=== PATIENT | female | born 1975 | race Caucasian/White ===

== ENCOUNTER 2016-06-10 10:01 | Emergency (ER) | payer MEDICARE, OTHER ==
[~2016-06-10] VITALS: Ht 165.1 cm; Wt 81.0 kg
[~2016-06-10 10:01] MED LIST: AMOXICILLIN250 M1 OR; ASPIRIN OR; BACTRIM DS1 TAB OR; BL IBUPROFEN200 MG PO; CIPRO500 MG OR; CIPROFLOXACN250 MG PO; CREON12000 UNT OR; CREON12000 UNT PO; DARVOCET N-100100 - OR; DICYCLOMINE10 MG PO; ECOTRIN325 MG OR; FLEXERIL OR; FLUARIX QUADRIV1 IN1 IM; FLUARIX QUADRIV1 IN2 IM; GLUCOPHAGE500 MG PO; HUMULIN 70/30 SC; HUMULIN R1 M1 SC; HYDROCO/APAP1 TA9 PO; IBUPROFEN200 MG PO; LANTUS; LANTUS SC; LANTUS SOLOSTAR SC; LANTUS100 MG/ML SC; LORTAB 10-325 M1 TAB PO; LORTAB 7.5 OR; METFORMIN500 MG PO; MOTRIN800 MG/TAB PO; NOVOLIN 70/30 SC; NOVOLOG FLEXPEN SC; OMEPRAZOLE20 MG PO; OXYBUTYNIN10 MG OR; OXYBUTYNIN5 M1 PO; OXYBUTYNIN5 MG PO; PANCREASE MT OR; PERCOCET1 TA1 OR; PHENYTOIN EX100 MG PO; PLAVIX75 MG OR; PLAVIX75 MG PO; PRILOSEC10 MG OR; PRILOSEC20 MG; PRILOSEC20 MG PO; PROMETHAZINE25 MG OR; REGLAN10 MG OR; REGLAN10 MG PO; RELION 70/30 SC; RID COMPLETE; RYBIX ODT50 MG PO; SINGULAIR10 MG OR; SYSTANE BALANCE REST OU; TRAMADOL HCL50 MG PO; ULTRAM50 M1 PO; ZESTRIL/PRI20 MG/TAB PO; ZYPREXA2.5 MG PO; [UNRECOGNIZED DRUG - CODE] PO; [UNRECOGNIZED DRUG - OTHER] OR; [UNRECOGNIZED DRUG - OTHER] OR
[2016-06-10] MEDS ORDERED: MOTRIN800 MG PO (10:21)
[2016-06-10 11:19] VITALS: BP 134/86
== END 2016-06-10 11:25 | disposition home or self-care (01) ==
LOC: ED 10:01
DX: S43.402A Unspecified sprain of left shoulder joint, initial encounter (principal); W01.0XXA Fall on same level from slipping, tripping and stumbling without subsequent striking against object, initial encounter; Y92.009 Unspecified place in unspecified non-institutional (private) residence as the place of occurrence of the external cause

== ENCOUNTER 2016-08-08 10:15 | Inpatient (IN) | payer MEDICARE, OTHER ==
[~2016-08-08] VITALS: Ht 165.1 cm; Wt 75.0 kg
[2016-08-08] VITALS (14 sets, daily range): BP systolic 90–120; BP diastolic 46–77
[~2016-08-08 10:15] MED LIST changes: +MOTRIN800 MG PO
[2016-08-08 10:57] LABS: HEMATOCRIT 35.3 % (37.0-47.0); HEMOGLOBIN 10.7 g/dl (12.0-16.0); IMMATURE GRANULOCYTES 1.2 % (0.0-1.0); MEAN CORPUSCULAR HGB 26.7 pG CALC (26.0-32.0); MEAN CORPUSCULAR HGB CONC 30.3 g/L CALC (32.0-36.0); NEUT# 6.1 thou/uL (2.00-7.15); RED BLOOD COUNT 4.01 mill/uL (4.20-5.60); RED CELL DISTRI WIDTH 16.9 % (11.5-15.5)
[2016-08-08 11:00] LABS: ALBUMIN 4.5 g/dL (3.2-5.0); BILIRUBIN, TOTAL 0.4 mg/dL (0.0-1.4); CALCIUM 10.6 mg/dL (8.4-10.2); CREATININE 1.3 mg/dL (0.5-1.0); TOTAL PROTEIN 8.2 g/dL (6.3-8.2)
[2016-08-08] MEDS ORDERED: LANTUS100 UNIT/M SC (11:05)
[2016-08-08] MEDS ORDERED: METFORMIN500 MG PO (11:11)
[2016-08-08] MEDS ORDERED: SEROQUEL25 MG PO (11:12)
[2016-08-08 11:33] LABS: URINE BILIRUBIN - DIPSTICK NEGATIVE (NEGATIVE); URINE BLOOD DIPSTICK NEGATIVE (NEGATIVE); URINE CLARITY CLEAR; URINE COLOR YELLOW; URINE GLUCOSE - DIPSTICK >=1000 mg/dL (NEGATIVE); URINE KETONE TRACE mg/dL (NEGATIVE); URINE LEUK ESTERASE NEGATIVE (NEGATIVE); URINE NITRITE - DIPSTICK NEGATIVE (Negative); URINE PH 5.5 (4.5-8.0); URINE PROTEIN - DIPSTICK NEGATIVE (NEG-TRACE); URINE SPECIFIC GRAVITY <=1.005; URINE UROBILINOGEN - DIPSTICK 0.2 E.U./dL (0.2)
[2016-08-08 17:15] LABS: BUN 58 mg/dL (7-17); BUN/CREATININE RATIO 53 (12-20 (CALC)); CALCIUM 10.3 mg/dL (8.4-10.2); CARBON DIOXIDE 21 mmol/l (22-30); CREATININE 1.1 mg/dL (0.5-1.0); GFR 55 ML/MIN (>=60 (CALC)); GFR FOR AFR.AMER. > 60 ML/MIN (>=60 (CALC)); GLUCOSE 177 mg/dL (65-105)
[2016-08-08 17:19] LABS: ANION GAP 18 (6-22 (CALC)); CHLORIDE 127 mmol/l (95-108); SODIUM 162 mmol/l (137-146)
[2016-08-08 20:49] LABS: BUN 56 mg/dL (7-17); BUN/CREATININE RATIO 50 (12-20 (CALC)); CALCIUM 10.3 mg/dL (8.4-10.2); CARBON DIOXIDE 22 mmol/l (22-30); CHLORIDE 125 mmol/l (95-108); CREATININE 1.1 mg/dL (0.5-1.0); GFR 55 ML/MIN (>=60 (CALC)); GFR FOR AFR.AMER. > 60 ML/MIN (>=60 (CALC)); GLUCOSE 94 mg/dL (65-105); POTASSIUM 3.6 mmol/l (3.5-5.1)
[2016-08-08 20:50] LABS: ANION GAP 18 (6-22 (CALC)); SODIUM 161 mmol/l (137-146)
[2016-08-09] VITALS (12 sets, daily range): BP systolic 92–130; BP diastolic 54–79
[2016-08-09 05:55] LABS: HEMATOCRIT 33.7 % (37.0-47.0); HEMOGLOBIN 10.1 g/dl (12.0-16.0); IMMATURE GRANULOCYTES 0.4 % (0.0-1.0); MEAN CELL VOLUME 88.2 fL CALC (80.0-100.0); MEAN CORPUSCULAR HGB 26.4 pG CALC (26.0-32.0); NEUT# 5.46 thou/uL (2.00-7.15); RED BLOOD COUNT 3.82 mill/uL (4.20-5.60); RED CELL DISTRI WIDTH 17.2 % (11.5-15.5)
[2016-08-09 06:20] LABS: ALBUMIN 3.9 g/dL (3.2-5.0); BILIRUBIN, TOTAL 0.3 mg/dL (0.0-1.4); CALCIUM 9.5 mg/dL (8.4-10.2); CREATININE 1.3 mg/dL (0.5-1.0); POTASSIUM 4.2 mmol/l (3.5-5.1); TOTAL PROTEIN 7.1 g/dL (6.3-8.2)
[2016-08-09 16:43] LABS: ANION GAP 14 (6-22 (CALC)); BUN 39 mg/dL (7-17); BUN/CREATININE RATIO 40 (12-20 (CALC)); CALCIUM 8.5 mg/dL (8.4-10.2); CARBON DIOXIDE 21 mmol/l (22-30); CHLORIDE 113 mmol/l (95-108); GFR > 60 ML/MIN (>=60 (CALC)); GFR FOR AFR.AMER. > 60 ML/MIN (>=60 (CALC)); GLUCOSE 355 mg/dL (65-105); SODIUM 144 mmol/l (137-146)
[2016-08-10] VITALS (8 sets, daily range): BP systolic 92–134; BP diastolic 56–94
[2016-08-10 04:55] LABS: HEMOGLOBIN 8.4 g/dl (12.0-16.0); IMMATURE GRANULOCYTES 0.5 % (0.0-1.0); MEAN CELL VOLUME 87.5 fL CALC (80.0-100.0); MEAN CORPUSCULAR HGB 26.3 pG CALC (26.0-32.0); NEUT# 2.86 thou/uL (2.00-7.15); RED BLOOD COUNT 3.2 mill/uL (4.20-5.60); RED CELL DISTRI WIDTH 16.8 % (11.5-15.5)
[2016-08-10 05:13] LABS: ALBUMIN 3.1 g/dL (3.2-5.0); ALKALINE PHOSPHATASE 106 u/l (38-126); ANION GAP 15 (6-22 (CALC)); BILIRUBIN, TOTAL 0.2 mg/dL (0.0-1.4); BUN 35 mg/dL (7-17); BUN/CREATININE RATIO 35 (12-20 (CALC)); CALCIUM 8.3 mg/dL (8.4-10.2); CARBON DIOXIDE 22 mmol/l (22-30); CHLORIDE 113 mmol/l (95-108); GFR > 60 ML/MIN (>=60 (CALC)); GFR FOR AFR.AMER. > 60 ML/MIN (>=60 (CALC)); GLUCOSE 427 mg/dL (65-105); POTASSIUM 4.6 mmol/l (3.5-5.1); SGOT/AST 17 u/l (14-36); SGPT/ALT 23 u/l (9-52); SODIUM 145 mmol/l (137-146); TOTAL PROTEIN 5.9 g/dL (6.3-8.2)
== END 2016-08-10 13:30 | DRG 638 ==
LOC: ENPENDDIS → ED 10:15 → ED-I 12:35 → ED 12:45 → ICU 12:46
PROVIDERS: Emergency Medicine; ADMIT Internal Medicine Geriatric Medicine; ATTEND Internal Medicine Geriatric Medicine
PROC: 0T9B70Z Drainage of Bladder with Drainage Device, Via Natural or Artificial Opening (ICD-10-PCS; principal; 2016-08-08)
DX: E13.10 Other specified diabetes mellitus with ketoacidosis without coma (principal); E87.0 Hyperosmolality and hypernatremia; S06.300S Unspecified focal traumatic brain injury without loss of consciousness, sequela; I10 Essential (primary) hypertension; E03.9 Hypothyroidism, unspecified; M19.90 Unspecified osteoarthritis, unspecified site; F06.8 Other specified mental disorders due to known physiological condition; V89.2XXS Person injured in unspecified motor-vehicle accident, traffic, sequela; Z86.718 Personal history of other venous thrombosis and embolism
CPT/HCPCS: J2060

== ENCOUNTER 2016-08-23 18:58 | Inpatient (IN) | payer MEDICARE, OTHER ==
[~2016-08-23] VITALS: Ht 165.1 cm; Wt 66.0 kg
[~2016-08-23 18:58] MED LIST changes: +LANTUS100 UNIT/M SC; +SEROQUEL25 MG PO
--- NOTE | 2016-08-23 18:58 | NUR ---
ARRIVED VIA EMS INJURY TO MOUTH DRIES BLOOD NOTED
--- NOTE | 2016-08-23 19:00 | NUR ---
L SCLERA RED. PT UNABLE TO SPEAK DUE TO PREVIOUS HX. MOVES ALL EXTREMITES AND FOLLOWS COMMANDS.
--- NOTE | 2016-08-23 19:45 | NUR ---
FATHER AT BEDSIDE, INFORMED OF PLAN OF CARE.
--- NOTE | 2016-08-23 19:58 | NUR ---
ASSISTED ON TO BEDPAN WITH FLAKO COHEN
--- NOTE | 2016-08-23 20:00 | NUR ---
ABRASIONS NOTED TO KNEE BILAT. CLEANED WITH NS.
--- NOTE | 2016-08-23 20:03 | NUR ---
PT TO CT.
[2016-08-23 20:04] LABS: HEMATOCRIT 28.5 % (37.0-47.0); IMMATURE GRANULOCYTES 0.3 % (0.0-1.0); MEAN CELL VOLUME 85.3 fL CALC (80.0-100.0); MEAN CORPUSCULAR HGB 26.9 pG CALC (26.0-32.0); MEAN CORPUSCULAR HGB CONC 31.6 g/L CALC (32.0-36.0); NEUT# 5.02 thou/uL (2.00-7.15); RED BLOOD COUNT 3.34 mill/uL (4.20-5.60); RED CELL DISTRI WIDTH 17.5 % (11.5-15.5)
[2016-08-23 20:12] LABS: URINE BILIRUBIN - DIPSTICK NEGATIVE (NEGATIVE); URINE BLOOD DIPSTICK NEGATIVE (NEGATIVE); URINE CLARITY CLEAR; URINE COLOR YELLOW; URINE GLUCOSE - DIPSTICK >=1000 mg/dL (NEGATIVE); URINE KETONE NEGATIVE (NEGATIVE); URINE LEUK ESTERASE NEGATIVE (NEGATIVE); URINE NITRITE - DIPSTICK NEGATIVE (Negative); URINE PROTEIN - DIPSTICK NEGATIVE (NEG-TRACE); URINE UROBILINOGEN - DIPSTICK 0.2 E.U./dL (0.2)
[2016-08-23 20:15] LABS: COCAINE NEGATIVE (NEGATIVE); METHADONE NEGATIVE (NEGATIVE); TETRAHYDROCANNABIONOL NEGATIVE (NEGATIVE)
[2016-08-23 20:16] LABS: BARBITURATES NEGATIVE (NEGATIVE); OXCYCODONE NEGATIVE (NEGATIVE); TRICYLIC ANTIDEPRESSANTS NEGATIVE (NEGATIVE)
[2016-08-23 20:20] LABS: ALBUMIN 3.9 g/dL (3.2-5.0); ALKALINE PHOSPHATASE 139 u/l (38-126); ANION GAP 16 (6-22 (CALC)); BILIRUBIN, TOTAL 0.3 mg/dL (0.0-1.4); BUN 18 mg/dL (7-17); BUN/CREATININE RATIO 25 (12-20 (CALC)); CALCIUM 8.7 mg/dL (8.4-10.2); CARBON DIOXIDE 20 mmol/l (22-30); CHLORIDE 100 mmol/l (95-108); CREATININE 0.7 mg/dL (0.5-1.0); ETHYL ALCOHOL 0 mg/dl (0-30); GFR > 60 ML/MIN (>=60 (CALC)); GFR FOR AFR.AMER. > 60 ML/MIN (>=60 (CALC)); POTASSIUM 4.7 mmol/l (3.5-5.1); SGOT/AST 19 u/l (14-36); SGPT/ALT 29 u/l (9-52); SODIUM 132 mmol/l (137-146)
[2016-08-23 20:22] LABS: GLUCOSE 570 mg/dL (65-105)
--- NOTE | 2016-08-23 20:23 | NUR ---
MARCE FROM LAB REPORTED BS 570, DR MATHEWS INFORMED.
[2016-08-23 20:34] LABS: MYOGLOBIN 35 ng/mL (0 - 62)
--- NOTE | 2016-08-23 20:35 | NUR ---
PT RETURNED FROM CT.
--- NOTE | 2016-08-23 21:40 | NUR ---
DR MATHEWS AT BEDSIDE FOR SUTURING.
--- NOTE | 2016-08-23 21:55 | NUR ---
PT TOLERATED SUTURING OF UPPER LIP WITHOUT DISTRESS.
--- NOTE | 2016-08-23 23:41 | NUR ---
REPORT TO [facility]
[2016-08-24 00:20] VITALS: BP 155/84
--- NOTE | 2016-08-24 00:20 | NUR ---
PT TO 274 VIA BRI ON TELE WITH RN.
--- NOTE | 2016-08-24 00:20 | NUR ---
PT.ARRIVED TO FLOOR ACCOMPANIED BY NOEL CASAREZ OF ED; PT.APPEARS TO BE STABLE AT THIS TIME, PT.ARRIVED ASSESSED, PT.HAS TWO SCRAPES ON KNEES/PICTURES IN CHART, PT.HAS SUTURES TO LEFT SIDE OF LIP, APPARENT BLEEDING AROUND TEETH AND IN MOUTH AND NASAL CAVITIES W/BRUISING TO NOSE AREA STARTING TO APPEAR; PROVIDED CHECO-CARE, ORAL CARE AND CLEANED NASAL PASSAGES OF DRIED BLOOD; SEIZURE PRECAUTIONS PUT IN PLACE, PT.ORIENTED TO ROOM,CALL LIGHT SYSTEM, PROVIDED SUGAR FREE PUDDING AND WATER; BED ALARM ON AND CALL LIGHT PLACED W/IN REACH OF PT.AND PT.INSTRUCTED SEVERAL TIMES HOW TO CALL FOR ASSISTANCE. WILL CONTINUE TO MONITOR CLOSELY
[2016-08-24 04:05] VITALS: BP 107/79
--- NOTE | 2016-08-24 04:20 | NUR ---
PT.SLEEPING SOUNDLY, NO S/S OF DISTRESS AT THIS TIME, BED ALARM ON
--- NOTE | 2016-08-24 05:30 | NUR ---
PT.SLEEPING AT THIS TIME, NO S/S OF DISTRESS, CALL LIGHT W/IN REACH AND BED ALARM ON
--- NOTE | 2016-08-24 07:00 | NUR ---
SHIFT CHANGE REPORT, PT AWAKE AND ALERT, UNABLE TO ASSESS LEVEL ORIENTATION, SPEECH UNCLEAR BUT FOLLOWS COMMANDS APPROPRIATELY, IVF INFUSING, CALL STILES IN REACH.
[2016-08-24 10:27] LABS: HEMATOCRIT 25.8 % (37.0-47.0); IMMATURE GRANULOCYTES 0.4 % (0.0-1.0); MEAN CELL VOLUME 85.4 fL CALC (80.0-100.0); MEAN CORPUSCULAR HGB 26.5 pG CALC (26.0-32.0); NEUT# 4.63 thou/uL (2.00-7.15); RED BLOOD COUNT 3.02 mill/uL (4.20-5.60); RED CELL DISTRI WIDTH 17.2 % (11.5-15.5)
[2016-08-24 10:47] LABS: ALKALINE PHOSPHATASE 109 u/l (38-126); ANION GAP 14 (6-22 (CALC)); BILIRUBIN, TOTAL 0.2 mg/dL (0.0-1.4); BUN 14 mg/dL (7-17); BUN/CREATININE RATIO 22 (12-20 (CALC)); CALCIUM 8.2 mg/dL (8.4-10.2); CARBON DIOXIDE 22 mmol/l (22-30); CHLORIDE 104 mmol/l (95-108); CREATININE 0.6 mg/dL (0.5-1.0); GFR > 60 ML/MIN (>=60 (CALC)); GFR FOR AFR.AMER. > 60 ML/MIN (>=60 (CALC)); GLUCOSE 351 mg/dL (65-105); POTASSIUM 4.3 mmol/l (3.5-5.1); SGOT/AST 9 u/l (14-36); SGPT/ALT 25 u/l (9-52); SODIUM 136 mmol/l (137-146); TOTAL PROTEIN 5.7 g/dL (6.3-8.2)
[2016-08-24 11:12] VITALS: BP 125/85
--- NOTE | 2016-08-24 14:35 | NUR ---
PT TRANSPORTED OFF UNIT VIA W/C FOR PROCEDURE AND JUST RETURNED, SETTLED IN BED, CALL STILES IN REACH.
[2016-08-24 15:10] VITALS: BP 136/92
[2016-08-24 19:20] VITALS: BP 138/84
--- NOTE | 2016-08-24 19:54 | NUR ---
REPORT RECEIVED FROM MARIANO PT.IN BED SLEEPING AT THIS TIME, NO S/S OF DISTRESS AT THIS TIME, WILL CONTINUE TO MONITOR, BED ALARM ON
--- NOTE | 2016-08-24 21:00 | NUR ---
PT.ASSESSED AND UP TO BSC, AMBULATED WELL W/1X ASSIST SLOWLY GUIDING HER DUE TO LIMITED VISION, 100CC OF CLEAR YELLOW URINE EMPTIED, PT.BED CHANGED DUE TO INCONTINENCE OF URINE AND PT.REPOSITIONED IN BED W/BED ALARM ON; NS RUNNING @60; PT.C/O EYE HURTING, PROVIDED WARM COMPRESS FOR LEFT EYE AREA FOR COMFORT.
[2016-08-24 23:00] VITALS: BP 128/64
--- NOTE | 2016-08-25 01:00 | NUR ---
PT.SLEEPING AT THIS TIME, ASSISTED PT.REPOSITION IN BED AND PROVIDED PO WATER
--- NOTE | 2016-08-25 03:25 | NUR ---
PT.SLEEPING W/LIGHTS OUT AT THIS TIME, NO S/S OF DISTRESS AT THIS TIME
[2016-08-25 03:43] VITALS: BP 127/76
--- NOTE | 2016-08-25 07:00 | NUR ---
SHIFT CHANGE REPORT, PT AWAKE AND ALERT RESTING IN BED, RESPONDS APPROPRIATELY TO VERBAL STIMULI, C/O PAIN TO L.EYE AND KNEES, IVF INFUSING, CALL STILES IN REACH.
[2016-08-25 07:59] VITALS: BP 129/100
[2016-08-25 08:00] VITALS: BP 132/70
[2016-08-25 08:54] LABS: HEMATOCRIT 31.4 % (37.0-47.0); HEMOGLOBIN 9.6 g/dl (12.0-16.0); IMMATURE GRANULOCYTES 0.2 % (0.0-1.0); MEAN CELL VOLUME 85.8 fL CALC (80.0-100.0); MEAN CORPUSCULAR HGB 26.2 pG CALC (26.0-32.0); MEAN CORPUSCULAR HGB CONC 30.6 g/L CALC (32.0-36.0); NEUT# 5.95 thou/uL (2.00-7.15); RED BLOOD COUNT 3.66 mill/uL (4.20-5.60); RED CELL DISTRI WIDTH 17.2 % (11.5-15.5)
[2016-08-25 09:23] LABS: ALBUMIN 3.7 g/dL (3.2-5.0); ALKALINE PHOSPHATASE 147 u/l (38-126); ANION GAP 20 (6-22 (CALC)); BILIRUBIN, TOTAL 0.4 mg/dL (0.0-1.4); BUN 12 mg/dL (7-17); BUN/CREATININE RATIO 18 (12-20 (CALC)); CALCIUM 8.8 mg/dL (8.4-10.2); CARBON DIOXIDE 16 mmol/l (22-30); CHLORIDE 103 mmol/l (95-108); CREATININE 0.6 mg/dL (0.5-1.0); GFR > 60 ML/MIN (>=60 (CALC)); GFR FOR AFR.AMER. > 60 ML/MIN (>=60 (CALC)); GLUCOSE 407 mg/dL (65-105); POTASSIUM 4.8 mmol/l (3.5-5.1); SGOT/AST 11 u/l (14-36); SGPT/ALT 27 u/l (9-52); SODIUM 134 mmol/l (137-146); TOTAL PROTEIN 6.6 g/dL (6.3-8.2)
--- NOTE | 2016-08-25 10:10 | NUR ---
DR MIRANDA HERE ROUNDING WITH PT, WROTE NEW ORDERS, WILL CONTINUE TO MONITOR.
[2016-08-25 11:33] VITALS: BP 146/98
--- NOTE | 2016-08-25 12:46 | NUR ---
SAT UP IN RECLINER WITH ASSIST OF 1 STAFF, BACK TO BED NOW AND BEING ASSISTED WITH MEAL, PAIN CONCERNS ADDRESSED, CALL STILES IN REACH.
[2016-08-25 15:20] VITALS: BP 127/94
--- NOTE | 2016-08-25 16:20 | NUR ---
VOMITTING AT THIS TIME, DR MIRANDA NOTIFIED AND GAVE ORDERS
--- NOTE | 2016-08-25 18:06 | NUR ---
ZOFRAN GIVEN, VOMITTING SUBSIDED AT THIS TIME.
--- NOTE | 2016-08-25 18:45 | NUR ---
RECEIVED SHIFT REPORT FROM NOEL TORRE. PATIENT LAYING IN BED AND APPEARS NOT TO BE IN ANY APPARENT DISTRESS.
--- NOTE | 2016-08-25 19:20 | NUR ---
PT STATES SHE NEEDS TO VOID. ASSISTED TO BSC.
--- NOTE | 2016-08-25 23:24 | NUR ---
NOTIFY DR MIRANDA OF PT'S HGB LEVEL OF 9.6. ORDERS TO NOTIFY LAB TO HOLD BLOOD UNTIL AM AFTER THE AM LAB RESULT. MIGUEL ÁNGEL IN THE LAB NOTIFIED.
[2016-08-26] VITALS (12 sets, daily range): BP systolic 119–151; BP diastolic 71–94
--- NOTE | 2016-08-26 | NUR ---
PATIENT RESTING QUIETLY IN BED WITH EYES CLOSED AND APPEARS TO BE ASLEEP. NO APPARENT ACUTE DISTRESS NOTED. WILL CONTINUE TO MONITOR
--- NOTE | 2016-08-26 04:00 | NUR ---
PATIENT REMAINDS IN STABLE CONDITION. NO APPARENT ACUTE DISTRESS NOTED.
[2016-08-26 04:26] LABS: HEMATOCRIT 24.6 % (37.0-47.0); HEMOGLOBIN 7.7 g/dl (12.0-16.0); IMMATURE GRANULOCYTES 0.5 % (0.0-1.0); MEAN CELL VOLUME 85.4 fL CALC (80.0-100.0); MEAN CORPUSCULAR HGB 26.7 pG CALC (26.0-32.0); MEAN CORPUSCULAR HGB CONC 31.3 g/L CALC (32.0-36.0); NEUT# 2.93 thou/uL (2.00-7.15); RED BLOOD COUNT 2.88 mill/uL (4.20-5.60); RED CELL DISTRI WIDTH 17.2 % (11.5-15.5)
[2016-08-26 04:45] LABS: ALBUMIN 2.9 g/dL (3.2-5.0); ALKALINE PHOSPHATASE 108 u/l (38-126); ANION GAP 14 (6-22 (CALC)); BILIRUBIN, TOTAL 0.2 mg/dL (0.0-1.4); BUN 15 mg/dL (7-17); BUN/CREATININE RATIO 22 (12-20 (CALC)); CALCIUM 8.1 mg/dL (8.4-10.2); CARBON DIOXIDE 21 mmol/l (22-30); CHLORIDE 105 mmol/l (95-108); CREATININE 0.7 mg/dL (0.5-1.0); GFR > 60 ML/MIN (>=60 (CALC)); GFR FOR AFR.AMER. > 60 ML/MIN (>=60 (CALC)); GLUCOSE 318 mg/dL (65-105); POTASSIUM 4.5 mmol/l (3.5-5.1); SGOT/AST 9 u/l (14-36); SGPT/ALT 28 u/l (9-52); SODIUM 135 mmol/l (137-146); TOTAL PROTEIN 5.5 g/dL (6.3-8.2)
--- NOTE | 2016-08-26 06:45 | NUR ---
DR MIRANDA NOTIFID OF PATIENT HGB LEVEL OF 7.7. ORDERS RECEIVED TO TRANSFUSE 2 UNITS OF PRBC'S.
--- NOTE | 2016-08-26 07:00 | NUR ---
SHIFT CHANGE REPORT FROM TYRONE VALE AWAKE AND ALERT, C/O PAIN TO KNEES AND EYES, REPOSITIONED AND SET UP FOR MEAL AT THIS TIME, CALL STILES IN REACH.
--- NOTE | 2016-08-26 12:00 | NUR ---
DR MIRANDA NOTIFIED OF NO EVIDENCE BM SINCE ADMISSION AND GAVE ORDERS. PT C/O PAIN TO KNEES AND LEFT FACE CONSTANTLY, COLD COMPRESS APPLIED TO FACE, WILL CONTINUE TO MONITOR, CALL STILES IN REACH.
--- NOTE | 2016-08-26 16:15 | NUR ---
SITTING IN HIGH FOWLERS POSITION AT THIS TIME, PRBC INFUSING. PT REQUESTING COFFEE AT THIS TIME AND RECEIVED IT BUT HAD TO BE FED WITH TEASPOON, SHE CONTINUES TO REPEAT THE PHRASE "THANK YOU" EVERY FEW SECONDS WHILE PERFORMING CARE WITH HER, CONTINUES TO C/O LEFT JAW PAIN WHILE AWAKE EVEN AFTER GIVEN ANALGESIC. WILL CONTINUE TO MONITOR, CALL STILES IN REACH.
--- NOTE | 2016-08-26 17:00 | NUR ---
TRANSFUSION OF 2 UNITS PRBC STARTED @ 1110 AM AND COMPLETED @ 1700, PT TOLERATED WITHOUT ADVERSE REACTIONS OR DISCOMFORT.
--- NOTE | 2016-08-26 18:45 | NUR ---
RECEIVED SHIFT REPORT FROM NOEL TORRE. PATIENT LAYING IN BED AND APPEARS TO BE ASLEEP. PATIENT RESPONDS SPONTANEOUSLY. NO APPARENT ACUTE DISTRESS NOTED. BED IN LOW POSITION, CALL LIGHT IN REACH, PERSONAL ALARM IN PLACE.
--- NOTE | 2016-08-26 20:00 | NUR ---
PATIENT VOMITED WHAT APPEARS TO BE UNDIGESTED FOOD. DR MIRANDA NOTIFIED. ORDERS RECEIVED TO GIVE ZOFRAN NOW AND RESUME NS @ 60CC/HR.
--- NOTE | 2016-08-27 | NUR ---
PATIENT RESTING QUIETLY WITH EYES CLOSED AND APPEARS TO BE ASLEEP RESPIRATION EVEN AND UNLABORED. NO APPARENT ACUTE DISTRESS NOTED.
--- NOTE | 2016-08-27 04:00 | NUR ---
PATIENT RESTING QUIETLY IN BED. NO ACUTE DISTRESS NOTED. NO FURTHER VOMITING DURING SHIFT.
[2016-08-27 04:55] VITALS: BP 129/76
[2016-08-27 06:19] LABS: ALBUMIN 3.6 g/dL (3.2-5.0); ALKALINE PHOSPHATASE 134 u/l (38-126); ANION GAP 20 (6-22 (CALC)); BILIRUBIN, TOTAL 0.5 mg/dL (0.0-1.4); BUN 16 mg/dL (7-17); BUN/CREATININE RATIO 23 (12-20 (CALC)); CALCIUM 8.7 mg/dL (8.4-10.2); CARBON DIOXIDE 20 mmol/l (22-30); CHLORIDE 102 mmol/l (95-108); CREATININE 0.7 mg/dL (0.5-1.0); GFR > 60 ML/MIN (>=60 (CALC)); GFR FOR AFR.AMER. > 60 ML/MIN (>=60 (CALC)); GLUCOSE 363 mg/dL (65-105); POTASSIUM 4.8 mmol/l (3.5-5.1); SGOT/AST 13 u/l (14-36); SGPT/ALT 26 u/l (9-52); SODIUM 137 mmol/l (137-146); TOTAL PROTEIN 6.5 g/dL (6.3-8.2)
[2016-08-27 06:47] LABS: HEMATOCRIT 33.8 % (37.0-47.0); HEMOGLOBIN 10.8 g/dl (12.0-16.0); IMMATURE GRANULOCYTES 0.3 % (0.0-1.0); MEAN CELL VOLUME 83.5 fL CALC (80.0-100.0); MEAN CORPUSCULAR HGB 26.7 pG CALC (26.0-32.0); RED BLOOD COUNT 4.05 mill/uL (4.20-5.60); RED CELL DISTRI WIDTH 18.1 % (11.5-15.5)
[2016-08-27 08:00] VITALS: BP 125/89
--- NOTE | 2016-08-27 08:00 | NUR ---
ASSESSMENT IS COMPLETD: PT C/O LEFT CHEEK HURTING., IV SITE IS FREE FROM REDNESS OR EDEMA. CONTINUE TO OSBERVE AND MONITOR.
--- NOTE | 2016-08-27 12:00 | NUR ---
PT HAS BEEN IN BED RESTING. NO DISTRESS NOTED. IV SITE IS FREE FROM REDNESS OR EDEMA. CONTINUE TO OSBERVE AND MONITOR.
[2016-08-27 13:29] VITALS: BP 141/80
--- NOTE | 2016-08-27 14:30 | NUR ---
PLACED A CALL TO [facility] FOR DISCHARGE. WILL SEND SOMEONE TO TRANSPORT PT.
--- NOTE | 2016-08-27 15:44 | NUR ---
RECEIVED A CALL FROM LASHON TORRES RE: PT'S FATHER WILL BE HERE TO TRANSPORT PT. NO DISTRESS NOTED. CONTINUE TO OBSERVE AND MONITOR.
--- NOTE | 2016-08-27 16:00 | NUR ---
DISCHARGE INSTRUCTIONS GIVEN TO FATHER. IV SITE DISCONTINUED WITH CATHETER INTACT. Discharge instructions given. Patient verbalizes understanding of same. Discharged in stable condition via Wheelchair to [facility] with family. All belongings sent with pt.
--- NOTE | 2016-08-27 16:04 | NUR ---
PT IS WAITING IN A CHAIR FOR HER FATHER TO COME AND PICK HER UP. CONTINUE TO OBSERVE AND MONITOR.
== END 2016-08-27 16:10 | DRG 638 ==
LOC: ENPENDDIS → ED 18:58 → ED-I 22:00 → ED 22:32 → MS2 22:33
PROVIDERS: Emergency Medicine; ADMIT Internal Medicine Geriatric Medicine; ATTEND Internal Medicine Geriatric Medicine
PROC: 0CQ0XZZ Repair Upper Lip, External Approach (ICD-10-PCS; principal; 2016-08-23)
PROC: 30233N1 Transfusion of Nonautologous Red Blood Cells into Peripheral Vein, Percutaneous Approach (ICD-10-PCS; 2016-08-26)
PROC: 30233N1 Transfusion of Nonautologous Red Blood Cells into Peripheral Vein, Percutaneous Approach (ICD-10-PCS; 2016-08-26)
DX: E13.10 Other specified diabetes mellitus with ketoacidosis without coma (principal); E87.0 Hyperosmolality and hypernatremia; S06.9X0S Unspecified intracranial injury without loss of consciousness, sequela; D64.9 Anemia, unspecified; S01.511A Laceration without foreign body of lip, initial encounter; F06.8 Other specified mental disorders due to known physiological condition; R47.89 Other speech disturbances; V89.2XXS Person injured in unspecified motor-vehicle accident, traffic, sequela; W01.190A Fall on same level from slipping, tripping and stumbling with subsequent striking against furniture, initial encounter; Y92.099 Unspecified place in other non-institutional residence as the place of occurrence of the external cause; Z79.84 Long term (current) use of oral hypoglycemic drugs; Z79.4 Long term (current) use of insulin
CPT/HCPCS: P9016

== ENCOUNTER 2018-02-23 17:44 | Inpatient (IN) | payer MEDICARE, OTHER ==
[~2018-02-23] VITALS: Ht 165.1 cm; Wt 66.0 kg
[2018-02-23 18:22] LABS: URINE BILIRUBIN - DIPSTICK NEGATIVE (NEGATIVE); URINE BLOOD DIPSTICK MODERATE (NEGATIVE); URINE COLOR YELLOW; URINE GLUCOSE - DIPSTICK NEGATIVE (NEGATIVE); URINE KETONE NEGATIVE (NEGATIVE); URINE NITRITE - DIPSTICK NEGATIVE (Negative); URINE PROTEIN - DIPSTICK 100 mg/dL (NEG-TRACE); URINE SPECIFIC GRAVITY 1.025; URINE UROBILINOGEN - DIPSTICK 0.2 E.U./dL (0.2)
[2018-02-23 18:29] LABS: URINE LEUK ESTERASE MODERATE (NEGATIVE)
[2018-02-23 18:31] LABS: URINE BACTERIA MODERATE hpf; URINE RBC TNTC RBC/hpf (0-5); URINE SQUAMOUS EPITHELIAL CELL FEW EPI/hpf (0-FEW); URINE WBC TNTC WBC/hpf (0-5)
[2018-02-23 18:49] LABS: HEMATOCRIT 35.9 % (37.0-47.0); HEMOGLOBIN 10.4 g/dl (12.0-16.0); IMMATURE GRANULOCYTES 2.2 % (0.0-5.0); MEAN CELL VOLUME 92.8 fL CALC (80.0-100.0); MEAN CORPUSCULAR HGB 26.9 pG CALC (26.0-32.0); RED BLOOD COUNT 3.87 mill/uL (4.20-5.60); RED CELL DISTRI WIDTH 17.6 % (11.5-15.5)
[2018-02-23 18:51] LABS: PLATELET COUNT 331 thou/uL (130-400)
[2018-02-23 18:52] LABS: MANUAL DIFFERENTIAL YES
[2018-02-23 18:53] LABS: ALBUMIN 3.5 g/dL (3.2-5.0); BILIRUBIN, TOTAL 0.3 mg/dL (0.0-1.4); CREATININE 2.3 mg/dL (0.5-1.0); POTASSIUM 5.2 mmol/l (3.5-5.1); TOTAL PROTEIN 6.7 g/dL (6.3-8.2)
[2018-02-23 19:10] LABS: BAND 22 % (0-8)
[2018-02-23 19:42] LABS: C. DIFFICILE TOXIN A&B NEGATIVE (NEGATIVE)
[2018-02-23 20:15] VITALS: BP 82/73
[2018-02-24] VITALS: BP 120/56
[2018-02-24 04:49] LABS: HEMOGLOBIN 9.1 g/dl (12.0-16.0); IMMATURE GRANULOCYTES 1.1 % (0.0-5.0); MEAN CORPUSCULAR HGB 26.5 pG CALC (26.0-32.0); MEAN CORPUSCULAR HGB CONC 30.3 g/L CALC (32.0-36.0); NEUT# 23.5 thou/uL (2.00-7.15); RED BLOOD COUNT 3.44 mill/uL (4.20-5.60); RED CELL DISTRI WIDTH 17.7 % (11.5-15.5)
[2018-02-24 04:56] LABS: MEAN CELL VOLUME 87.2 fL CALC (80.0-100.0)
[2018-02-24 05:21] LABS: BILIRUBIN, TOTAL 0.2 mg/dL (0.0-1.4); CREATININE 2.7 mg/dL (0.5-1.0)
[2018-02-24 06:58] LABS: POTASSIUM 6.4 mmol/l (3.5-5.1)
[2018-02-24 08:24] VITALS: BP 136/80
[2018-02-24 11:33] VITALS: BP 129/83
[2018-02-24 12:23] LABS: HEMATOCRIT 27.3 % (37.0-47.0); HEMOGLOBIN 8.5 g/dl (12.0-16.0); IMMATURE GRANULOCYTES 0.9 % (0.0-5.0); MEAN CELL VOLUME 87.2 fL CALC (80.0-100.0); MEAN CORPUSCULAR HGB 27.2 pG CALC (26.0-32.0); MEAN CORPUSCULAR HGB CONC 31.1 g/L CALC (32.0-36.0); NEUT# 19.58 thou/uL (2.00-7.15); RED BLOOD COUNT 3.13 mill/uL (4.20-5.60); RED CELL DISTRI WIDTH 17.4 % (11.5-15.5)
[2018-02-24 12:49] LABS: POTASSIUM 5.9 mmol/l (3.5-5.1)
[2018-02-24 15:00] VITALS: BP 118/80
[2018-02-24 20:00] VITALS: BP 100/50
[2018-02-25 04:16] VITALS: BP 84/37
[2018-02-25 05:21] LABS: HEMATOCRIT 26.1 % (37.0-47.0); HEMOGLOBIN 7.6 g/dl (12.0-16.0); MEAN CORPUSCULAR HGB CONC 29.1 g/L CALC (32.0-36.0); NEUT# 18.61 thou/uL (2.00-7.15); RED BLOOD COUNT 2.81 mill/uL (4.20-5.60); RED CELL DISTRI WIDTH 17.6 % (11.5-15.5)
[2018-02-25 05:26] LABS: MEAN CELL VOLUME 92.9 fL CALC (80.0-100.0)
[2018-02-25 05:31] LABS: ALBUMIN 2.9 g/dL (3.2-5.0); BILIRUBIN, TOTAL 0.3 mg/dL (0.0-1.4); TOTAL PROTEIN 5.7 g/dL (6.3-8.2)
[2018-02-25 05:47] LABS: CREATININE 4.1 mg/dL (0.5-1.0)
[2018-02-25 05:49] LABS: POTASSIUM 7.3 mmol/l (3.5-5.1)
== END 2018-02-25 12:40 | disposition expired | DRG 871 ==
LOC: ED 17:44 → ED-I 18:45 → ED 19:03 → MS2 19:04
PROVIDERS: Emergency Medicine; ADMIT Internal Medicine Geriatric Medicine; ATTEND Internal Medicine Geriatric Medicine
DX: A41.9 Sepsis, unspecified organism (principal); E08.10 Diabetes mellitus due to underlying condition with ketoacidosis without coma; K86.1 Other chronic pancreatitis; E87.0 Hyperosmolality and hypernatremia; N17.9 Acute kidney failure, unspecified; F06.8 Other specified mental disorders due to known physiological condition; S06.309S Unspecified focal traumatic brain injury with loss of consciousness of unspecified duration, sequela; S36.209S Unspecified injury of unspecified part of pancreas, sequela; M19.90 Unspecified osteoarthritis, unspecified site; E03.9 Hypothyroidism, unspecified; E87.5 Hyperkalemia; V89.2XXS Person injured in unspecified motor-vehicle accident, traffic, sequela; Z79.4 Long term (current) use of insulin; Z66 Do not resuscitate; Z86.718 Personal history of other venous thrombosis and embolism; Z51.5 Encounter for palliative care
CPT/HCPCS: J2060